=== PATIENT | male | born 1980 | race Caucasian/White ===

== ENCOUNTER 2018-05-03 00:38 | Emergency (ER) | payer SELFPAY ==
[~2018-05-03] VITALS: Ht 177.8 cm; Wt 75.0 kg
[2018-05-03] MEDS ORDERED: SODIUM CHLORIDE 0.9% 1,000 ML IV ONE (02:10)
[2018-05-03] MEDS ORDERED: KETOROLAC 30MG/ML VIAL IV STA (02:10)
[2018-05-03] MEDS ORDERED: ONDANSETRON HCL 4MG/2ML INJ IV STA (02:10)
[2018-05-03 02:25] LABS: BASOPHILS % 1.8 % (0.0-2.0); EOSINOPHILS % 4.3 % (0.0-5.0); HEMATOCRIT. 43.9 % (42.0-52.0); HEMOGLOBIN. 14.8 g/dL (14.0-18.0); LYMPHOCYTES % 34.1 % (20.0-50.0); MEAN CORPUSCULAR HEMOGLOBIN 31.1 pg (28.0-32.0); MEAN CORPUSCULAR VOLUME 92.3 fL (80.0-94.0); MEAN PLATELET VOLUME 7.5 fl (7.4-10.4); MONOCYTES % 10.2 % (2.0-8.0); NEUTROPHILS % 49.6 % (40.0-76.0); PLATELET 63 x1000/uL (130-400); RED BLOOD CELL COUNT 4.76 mill/uL (4.7-6.1); RED CELL DISTRIBUTION WIDTH 14.8 % (11.6-14.6)
[2018-05-03 02:30] LABS: CLARITY URINE CLEAR (CLEAR); COLOR URINE YELLOW (YELLOW); KETONES URINE NEGATIVE (NEGATIVE); LEUKOCYTE ESTERASE URINE NEGATIVE (NEGATIVE); NITRITE URINE NEGATIVE (NEGATIVE); OCCULT BLOOD URINE 2+ (NEGATIVE); PROTEIN URINE 1+ (NEGATIVE); SPECIFIC GRAVITY URINE 1.004 (1.005-1.030); UROBILINOGEN URINE 0.2 E.U./dL (0.2-1.0)
[2018-05-03 02:31] LABS: CHLORIDE 103 mEq/L (98-107)
[2018-05-03 02:36] LABS: INR 1.2; PROTHROMBIN TIME 11.7 sec (9.1-11.1)
[2018-05-03 04:15] VITALS: BP 145/86
== END 2018-05-03 04:15 | disposition home or self-care (01) ==
LOC: ER 00:38
DX: R10.32 Left lower quadrant pain (principal); F17.210 Nicotine dependence, cigarettes, uncomplicated; F10.129 Alcohol abuse with intoxication, unspecified; Y90.9 Presence of alcohol in blood, level not specified
CPT/HCPCS: 36415; 74021; 80053; 81003; 83690; 85025; 85610; 96361; 96374; 96375; 99284; J1885; J2405; J7030; Z7610

== ENCOUNTER 2018-05-09 00:42 | Emergency (ER) | payer OTHER ==
[~2018-05-09] VITALS: Ht 170.2 cm; Wt 66.0 kg
[2018-05-09 01:00] VITALS: BP 135/90
== END 2018-05-09 03:11 | disposition left against medical advice (07) ==
LOC: ER 00:42
DX: S00.03XA Contusion of scalp, initial encounter (principal); F10.129 Alcohol abuse with intoxication, unspecified; W01.0XXA Fall on same level from slipping, tripping and stumbling without subsequent striking against object, initial encounter; Y93.89 Activity, other specified; Y92.89 Other specified places as the place of occurrence of the external cause; Y99.8 Other external cause status
CPT/HCPCS: 36415; 80320; 99284; G0480

== ENCOUNTER 2020-10-21 15:11 | Emergency (ER) | payer OTHER ==
[~2020-10-21] VITALS: Ht 180.3 cm; Wt 75.0 kg
[2020-10-21 15:12] VITALS: BP 113/66
== END 2020-10-21 15:53 | disposition left against medical advice (07) ==
LOC: ER 15:21
DX: F10.129 Alcohol abuse with intoxication, unspecified (principal); Y90.9 Presence of alcohol in blood, level not specified
CPT/HCPCS: 99281